=== PATIENT | male | born 1965 ===

== ENCOUNTER 2020-03-26 17:00 | Outpatient (CLI) | payer BC | END 2020-03-26 17:01 | disposition home or self-care (01) | LOC: SLEEPLAB 17:00 | PROVIDERS: ATTEND Family Medicine | DX: G47.33 Obstructive sleep apnea (adult) (pediatric) (principal); G47.10 Hypersomnia, unspecified; F51.9 Sleep disorder not due to a substance or known physiological condition, unspecified; R53.83 Other fatigue; R40.0 Somnolence; E66.9 Obesity, unspecified; R06.83 Snoring | CPT/HCPCS: 95806 ==